=== PATIENT | female | born 1990 | race African-American/Black ===

== ENCOUNTER 2021-08-10 19:30 | Emergency (ER) | payer SELFPAY ==
[~2021-08-10 19:30] MED LIST: Iopamidol 370 76% 100 ML VIAL ONE
[2021-08-10 20:03] LABS: #Eosinphils 0.1 thou/uL (0.0-0.7); #Lymphocytes 0.9 thou/uL (1.20-3.40); #Monocytes 0.6 thou/uL (0.11-0.59); #Neutrophils 5.1 thou/uL (1.40-6.50); %Basophils 0.3 % (0.0-1.0); %Eosinophils 1.4 % (0.0-10.0); %Monocytes 8.3 % (0.0-10.0); Hemoglobin 10.7 g/dL (12.0-16.0); Mean Corpuscular Hemoglobin 29.8 pg (27.0-31.0); Mean Corpuscular Volume 87.6 fL (78.0-98.0); Mean Platelet Volume 8.8 fL (7.4-10.4); Platelet Count 149 thou/uL (130-400); RBC Distribution Width 12.3 % (11.5-14.5); White Blood Cell (WBC) Count 6.7 thou/uL (4.8-10.8)
[2021-08-10 20:23] LABS: ALT (SGPT) 20 U/L (8-55); AST (SGOT) 34 U/L (5-34); Albumin 3.5 g/dL (3.5-5.0); Alkaline Phosphatase 205 U/L (40-110); Anion Gap 13 mmol/L (10-20); BUN (Urea Nitrogen) 11 mg/dL (7.0-18.7); Bilirubin, Total 0.3 mg/dL (0.2-1.2); Calc. Creatinine Clearance 0 mL/min (70-130); Calcium 8.5 mg/dL (7.8-10.44); Carbon Dioxide 20 mmol/L (22-29); Chloride 107 mmol/L (98-107); Globulin 2.9 g/dL (2.4-3.5); Glucose 66 mg/dL (70-105); Potassium 4.3 mmol/L (3.5-5.1); Protein, Total 6.4 g/dL (6.0-8.3); Sodium 136 mmol/L (136-145)
[2021-08-10] MEDS ORDERED: Albuterol 200 PUFF (6.7GM INHALER) ONE (20:44)
[2021-08-10 20:47] LABS: Lipase 32 U/L (8-78); Magnesium 1.7 mg/dL (1.6-2.6)
[2021-08-10] MEDS ORDERED: Ondansetron PF 4 MG/2 ML Vial ONE (21:16)
[2021-08-10] MEDS ORDERED: Morphine 4 MG/ML VIAL ONE (21:16)
== END 2021-08-10 23:00 | disposition home or self-care (01) ==
LOC: ERS 19:30
DX: O99.891 Other specified diseases and conditions complicating pregnancy (principal); R07.9 Chest pain, unspecified; Z3A.30 30 weeks gestation of pregnancy
CPT/HCPCS: 36415; 71045; 71275; 80053; 83690; 83735; 83880; 84484; 85025; 85379; 93005; 96374; 96375; J2270; J2405; Q9967